=== PATIENT | male | born 1965 | race Caucasian/White ===

== ENCOUNTER 2025-04-18 17:22 | Emergency (ER) | payer OTHER, SELFPAY ==
[2025-04-18 17:29] VITALS: BP 128/85
[2025-04-18 17:49] LABS: Hematocrit 43.6 % (39.0-52.0); Hemoglobin 15.6 g/dL (13.0-18.0); Mean Corp Hgb Conc. 35.8 g/dL (33.0-37.0); Mean Corpuscular Volume 87.4 fL (80.0-94.0); Nucleated Red Blood Cells % 0 % (-); Platelet Count 240 10^3/uL (130-400); Red Cell Dist. Width 12.1 % (11.5-14.5)
[2025-04-18 18:07] LABS: Urine Character Clear (Clear)
[2025-04-18 18:13] LABS: ALT (SGPT) 28 U/L (0-50); AST (SGOT) 34 U/L (17-59); Albumin 4.8 g/dl (3.5-5.0); Alkaline Phosphatase 72 U/L (38-126); Blood Urea Nitrogen 16 mg/dl (9-20); Calcium 9.4 mg/dl (8.4-10.2); Carbon Dioxide 26 mmol/L (22-30); Chloride 103 mmol/L (98-107); Glucose 128 mg/dl (70-99); Potassium 3.9 mmol/L (3.5-5.1); Sodium 138 mmol/L (135-145); Total Protein 7.6 g/dl (6.3-8.2); eGFR > 60.00
[2025-04-18 18:14] LABS: Troponin I < 0.012 ng/ml
[2025-04-18 18:18] LABS: Urine Red Blood Cell 0-2 /HPF (0-2); Urine White Cell 0-2 /HPF (0-5)
[2025-04-18 19:35] VITALS: BP 118/77
[2025-04-18 19:53] VITALS: BMI 24.6
[2025-04-18 20:00] VITALS: BP 119/82
[2025-04-18 21:00] VITALS: BP 123/74
[2025-04-18 22:00] VITALS: BP 113/81
[2025-04-18 22:00] LABS: Troponin I < 0.012 ng/ml
--- NOTE | 2025-04-18 22:03 | ED.GENMED ---
History of Present Illness
General
Chief Complaint: Chest Pain
Source: patient
Time Seen by Provider: 04/18/25 21:29
History of Present Illness
History of Present Illness:
59-year-old male with a past medical history of GERD and previous kidney stone presents to the emergency department for evaluation after he went to an urgent care due to a burning sensation across his chest wall and into his bilateral arms have been
occurring over the last 24 hours and was told he had an abnormal EKG so he should go to the emergency department for further evaluation. At time of my exam symptoms are fully resolved. Patient notes that the burning sensation will wax and wane,
comes randomly, no exacerbating or alleviating factors and without any other associated symptoms. Patient denies any recent illnesses, fevers, recent travel, known sick contacts, cough, pleurisy, hemoptysis, abdominal pain, nausea, vomiting, back
or flank pain or any other concerns.
Past History
Past History
ED Past Medical History: Other (Kidney stone ); Negative HTN or NIDDM
ED Past Surgical History: None
Social History
Tobacco: Non-smoker
Alcohol: None
Drug: None
Personal:
Living: with family
Family History
Family History: Hypertension
Review of Systems
Review of Systems
All Other Systems: ROS reviewed and negative except as documented in HPI and ROS
Phy Exam
Physical Exam
Physical Exam:
GENERAL: Alert , in no apparent distress
HEAD: Normocephalic atraumatic
EYE: conjunctiva clear
NECK: Supple
ENT: o/p clr, mmm.
CARDIAC: Regular rate and rhythm
LUNGS: Clear breath sounds bilaterally, no acute respiratory distress, no wheezes/rales/rhonchi
NEUROLOGICAL: Alert and oriented
SKIN: Warm and dry, skin intact.
MUSCULOSKELETAL: well perfused.
PSYCH: Normal and appropriate interaction.
Scores
Heart Failure Risk
Heart Failure Risk Score: Not Applicable
Heart Score for Chest Pain Patients
STEMI patient?: No
History: Slightly or Non-Suspicious
ECG: Normal
Age: >45 - <65 years
Risk Factors: No Risk Factors
Troponin: </= Normal Limit
Heart Score for Chest Pain Patients: 1
Heart Score Risk: 2.5% MACE over next 6 weeks
Withdrawal Assessment of Alcohol
Withdrawal Assessment Completed?: Not applicable
Course
Orders/Labs/Results
Orders:
Orders
04/18/25 17:22
Electrocardiogram (*1) Urgent
Reason for Study: Chest Pain
EKG- Treatment ONCE
04/18/25 17:39
Complete Blood Count/With Diff Urgent
Comprehensive Metabolic Panel Urgent
Troponin I Urgent
04/18/25 17:56
UA [Urinalysis] Urgent
Date Specimen was Collected: 04/18/25
Time Specimen was Collected: 17:55
Urine Microscopic Urgent
Date Specimen was Collected: 04/18/25
Time Specimen was Collected: 17:55
04/18/25 21:22
Electrocardiogram (*1) Urgent
Reason for Study: Hypertension, Benign
EKG- Treatment ONCE
04/18/25 21:29
CR Chest - 2 Views Urgent
Comment:
Reason For Exam: chest pain
04/18/25 21:32
Troponin I Urgent
04/18/25 22:05
Alprazolam [Xanax] 0.5 mg PO NOW STA
Abnormal Lab Results
04/18/25 04/18/25
17:39 17:56
MCH 31.3 H pg
(27.0-31.0)
Lymphocytes % 17.4 L %
(20.5-51.1)
Glucose 128 H mg/dl
(70-99)
Total Bilirubin 1.5 H mg/dl
(0.2-1.3)
Urine Ketones 2+ A
(Negative)
Urine Occult Blood 1+ A
(Negative)
Urine Bacteria Few A
(Negative)
Urine Albumin 1+ A
(Neg - Trace)
04/18/25 17:39
04/18/25 17:39
Vital Signs
Initial and Last Documented VS:
Initial Vital Signs
Temp Pulse Resp BP Pulse Ox
98.2 F 62 18 128/85 97
04/18/25 17:29 04/18/25 17:29 04/18/25 17:29 04/18/25 17:29 04/18/25 17:29
Last Documented Vital Signs
Temp Pulse Resp BP Pulse Ox
98.2 F 46 13 102/74 98
04/18/25 17:29 04/18/25 22:36 04/18/25 22:36 04/18/25 22:36 04/18/25 22:36
MDM/Problems Addressed
Differential Diagnosis Includes:
Paresthesia
ACS
Pleurisy
Costochondritis
PE
PNA
Dissection/Aneurysm
Cardiac Arrhythmia
Valvular Dysfunction
GERD
Gastritis
MDM/Problems Addressed:
59-year-old male presenting the ER for evaluation after he went to urgent care today was told that he had an abnormal EKG and should come to the emergency department. He notes a burning sensation across his chest over the last 24 hours, symptoms
waxing and waning. Currently asymptomatic. Workup initiated here reveals no significant abnormalities. Negative troponin. Patient requesting something for anxiety as he feels very anxious currently. Will give a dose of Xanax. Awaiting chest
x-ray with anticipation of outpatient follow-up with his own financial aid director who he sees through [place].
*Radiology
Radiology exam reviewed: preliminary read by ED provider (Normal chest x-ray)
*Pulse Oximetry
SaO2: 97
Oxygen Mode of Delivery: Room air
Patient hypoxic: no
*EKG
Heart Rate: 42
Rate: bradycardiac
Rhythm: sinus
[place]: normal axis
Ischemia: no ischemia
*Sawmill Worker Interpretation
Rate: normal
Heart Rate: 62
Rhythm: sinus
*Critical Care Note
Total Time (30-74mins, 75-104mins- exclusive of procedures): Not Applicable
Patient Management
Escalation/DeEscalation of care consider admission/obs:
Repeat troponin negative, chest x-ray without any abnormalities. Patient did report improvement and felt less anxious after the Xanax. He will follow-up with his financial aid director. I provided the patient with his EKGs from here as well as his lab
work. Patient and are aware of return precautions to the ER.
ED Attending Note
-
Portions of this chart may have been created with voice recognition software.� Occasional wrong word or��sound alike� substitutions may have occurred due to the inherent limitations of voice recognition software.
Discharge Plan
Departure
Patient Disposition: Home (Routine Discharge)
Date of Disposition: 04/18/25
Time of Disposition: 22:32
Patient with high blood pressure during this ER visit?: No
Discharge Problem:
Chest pain, Bradycardia
Instructions: Chest Pain NON-DHP Saw Sharpener Follow Up
Prescriptions:
No Action
ibuprofen 400 mg Tablet
400 mg PO Q6HPRN PRN (Reason: back pain)
famotidine 20 mg tablet
40 mg PO DAILY
lidocaine 5 % adhesive patch,medicated
1 patch topical DAILYPRN PRN (Reason: lower back)
acetaminophen 500 mg tablet
500 mg PO Q6HPRN PRN (Reason: mild pain)
cefuroxime axetil 500 mg tablet
500 mg PO BID Qty: 14 0RF
Referrals:
NONE,* [Family Provider, Internal Medicine]
Interventions
Interventions:
*Risk Screen - Suicide Last Done: 04/18/25 17:29
*General Assessment Last Done: 04/18/25 17:29
*Neglect/Abuse Screening Last Done: 04/18/25 17:29
*ED- Fall Risk Assessment Last Done: 04/18/25 19:51
*ED COVID-19 Vaccine History Last Done: 04/18/25 19:51
*ED Influenza Vaccine History Last Done: 04/18/25 19:51
*Nursing Disposition Last Done: 04/18/25 22:41
ED- Cardiac Assessment Last Done: 04/18/25 19:49
Discharge Date and Time
Discharge Date/Time: 04/18/25 22:42
Print Language: SAL[place]
[2025-04-18] MEDS: XANAX 0.5 MG PO (22:09)
[2025-04-18 22:36] VITALS: BP 102/74
== END 2025-04-18 22:42 | disposition home or self-care (01) ==
LOC: EMR 17:22
PROVIDERS: EMERGENCY PHYSICIAN Student in an Organized Health Care Education/Training Program
DX: R07.9 Chest pain, unspecified (principal); R00.1 Bradycardia, unspecified; I10 Essential (primary) hypertension; K21.9 Gastro-esophageal reflux disease without esophagitis; Z82.49 Family history of ischemic heart disease and other diseases of the circulatory system
CPT/HCPCS: 99284; 71046; 80053; 81003; 81015; 84484; 85025; 93005